=== PATIENT | female | born 1980 | race Caucasian/White ===

== ENCOUNTER 2020-11-01 07:28 | Day surgery (SDC) | payer OTHER ==
[~2020-11-01] VITALS: Ht 165.1 cm; Wt 72.1 kg
[2020-11-01] MEDS ORDERED: fentaNYL citrate 0.05 MG/ML VIAL ONE (08:06)
[2020-11-01] MEDS ORDERED: diphenhydrAMINE 50 MG/ML VIAL ONE (08:06)
[2020-11-01] MEDS ORDERED: MIDAZOLAM 5 MG/5 ML VIAL ONE (08:06)
[2020-11-01] MEDS: fentaNYL citrate 0.05 MG/ML VIAL IVP ONE (08:11)
[2020-11-01] MEDS: MIDAZOLAM 2 MG/2 ML VIAL IVP ONE (08:12)
[2020-11-01] MEDS ORDERED: MIDAZOLAM 5 MG/1 ML VIAL IV ONE (09:15)
== END 2020-11-01 09:36 | disposition home or self-care (01) ==
LOC: MMU 07:28 → MDS 07:28
PROVIDERS: ATTEND Internal Medicine Gastroenterology
DX: R13.10 Dysphagia, unspecified (principal); E66.9 Obesity, unspecified; G40.909 Epilepsy, unspecified, not intractable, without status epilepticus; E78.5 Hyperlipidemia, unspecified; Z98.84 Bariatric surgery status; Z79.899 Other long term (current) drug therapy
CPT/HCPCS: 43235; 81025; 87426; J2250; J3010; J1200